=== PATIENT | female | born 1970 | race Caucasian/White ===

== ENCOUNTER → 2017-02-16 | Outpatient (CLI) | payer OTHER ==
[2017-02-16 18:29] LABS: COMPLEMENT C4 18.6 MG/DL (10-40); IMMUNOGLOBULIN M 71.7 MG/DL (40-230)
[2017-02-21 00:06] LABS: ALPHA 1 ANTITRYPSIN 104 mg/dL (90-200); D001-IgE D pteronyssinus 7.67 kU/L (Class IV); E001-IgE Cat Epith/Dander 0.34 kU/L (Class I); E005-IgE Dog Dander 0.67 kU/L (Class II); F004-IgE Wheat < 0.10 kU/L (Class 0); F013-IgE Peanut < 0.10 kU/L (Class 0); F014-IgE Soybean < 0.10 kU/L (Class 0); F026-IgE Pork < 0.10 kU/L (Class 0); F027-IgE Beef < 0.10 kU/L (Class 0); F095-IGE PEACH/NECTARINE 0.13 kU/L (Class 0/I); F245-IgE Egg, Whole 0.45 kU/L (Class I); FX02-IgE Food Mix (Sea Foods) Positive (.); G002-IgE Bermuda Grass 0.17 kU/L (Class 0/I); G008-IgE Kentucky Bluegrass 1.31 kU/L (Class II); M001-IgE Penicillium chrysogen < 0.10 kU/L (Class 0); M002 IgE Cladosporium herbaru < 0.10 kU/L (Class 0); M003 IgE Aspergillus fumigatu < 0.10 kU/L (Class 0); M006-IgE Alternaria alternata < 0.10 kU/L (Class 0); T001-IgE Maple/Box Elder < 0.10 kU/L (Class 0); T003-IgE Common Silver Birch 2.54 kU/L (Class III); T007-IgE Oak, White 0.13 kU/L (Class 0/I); T008-IgE Elm, American < 0.10 kU/L (Class 0); T015-IgE Ash, White 0.17 kU/L (Class 0/I); T041-IgE Hickory, White < 0.10 kU/L (Class 0); W001-IgE Ragweed, Short 0.64 kU/L (Class II); W009-IgE Plantain, English < 0.10 kU/L (Class 0); W014-IgE Pigweed, Rough < 0.10 kU/L (Class 0); W018-IgE Sheep Sorrel < 0.10 kU/L (Class 0)
== END ==
LOC: M LAB 16:50
PROVIDERS: ATTEND Allergy & Immunology
DX: J30.89 Other allergic rhinitis (principal); K52.29 Other allergic and dietetic gastroenteritis and colitis

== ENCOUNTER 2018-02-21 07:45 | Emergency (ER) | payer OTHER ==
[2018-02-21] MEDS: NS 1,000 ML IV (08:15)
[2018-02-21] MEDS: ONDANSETRON 4MG/2ML VIAL (J2405) IV (08:32)
[2018-02-21] MEDS: KETOROLAC 30 MG/ML VIAL (J1885) IV (08:32)
[2018-02-21] MEDS: diphenhydrAMINE INJ 50MG/ML VIAL (J1200) IV (08:32)
== END 2018-02-21 09:51 | disposition home or self-care (01) ==
LOC: M ED 07:45
DX: G43.909 Migraine, unspecified, not intractable, without status migrainosus (principal); J45.909 Unspecified asthma, uncomplicated; Z79.899 Other long term (current) drug therapy
CPT/HCPCS: J1200

== ENCOUNTER 2018-10-24 07:45 | Emergency (ER) | payer OTHER ==
[~2018-10-24] VITALS: Ht 160 cm; Wt 89.0 kg
[~2018-10-24 07:45] MED LIST: FLUT44IN INH; LEXA1TAB PO; MAXA10TA14 PO; SING10TA32 PO
[2018-10-24] MEDS ORDERED: ONDANSETRON 4MG/2ML VIAL (J2405) IV ONE (08:15)
[2018-10-24] MEDS ORDERED: NS 1,000 ML IV ONE (08:15)
[2018-10-24] MEDS ORDERED: KETOROLAC 30 MG/ML VIAL (J1885) IV ONE (08:15)
[2018-10-24] MEDS ORDERED: ACETAMINOPHEN 325 MG TAB PO ONE (08:15)
[2018-10-24] MEDS ORDERED: ONDA4TAB6 PO (08:56)
[2018-10-24 09:06] VITALS: BP 155/72
== END 2018-10-24 09:07 | disposition home or self-care (01) ==
LOC: M ED 07:45
DX: G43.909 Migraine, unspecified, not intractable, without status migrainosus (principal); Z79.899 Other long term (current) drug therapy
CPT/HCPCS: 96374; 96375; 99284; J1885; J2405

== ENCOUNTER 2018-12-09 13:09 | Emergency (ER) | payer OTHER ==
[~2018-12-09] VITALS: Ht 160 cm; Wt 81.8 kg
[~2018-12-09 13:09] MED LIST changes: +ONDA4TAB6 PO
[2018-12-09] MEDS ORDERED: RIZA10TA2 PO (13:18)
[2018-12-09] MEDS ORDERED: EXCETAB33 PO (13:18)
[2018-12-09] MEDS ORDERED: IBUP1TAB6 PO (13:18)
[2018-12-09] MEDS ORDERED: NS 1,000 ML IV ONE (15:30)
[2018-12-09] MEDS ORDERED: KETOROLAC 30 MG/ML VIAL (J1885) IV ONE (15:45)
[2018-12-09] MEDS ORDERED: PROCHLORPERAZINE 10 MG/2 ML VIAL (J0780) IV ONE (15:45)
[2018-12-09 16:24] LABS: HEMATOCRIT 40.7 % (36.0-47.0); HEMOGLOBIN 13.8 g/dl (12.0-15.5); MEAN CORPUSCULAR HEMOGLOBIN 32.6 pg (27.0-33.0); MEAN CORPUSCULAR HGB CONC 33.9 g/dl (32.0-36.5); MEAN CORPUSCULAR VOLUME 96.2 fl (80.0-96.0); PLATELET COUNT, AUTOMATED 223 10^3/uL (150-450); RED BLOOD COUNT 4.23 10^6/uL (4.00-5.40); WHITE BLOOD COUNT 9.4 10^3/uL (4.0-10.0)
[2018-12-09] MEDS ORDERED: KETO10TAB PO (18:13)
[2018-12-09 18:28] VITALS: BP 154/75
[2018-12-09 18:51] LABS: BLOOD UREA NITROGEN 9 MG/DL (7-18); CALCIUM LEVEL 8.7 MG/DL (8.5-10.1); CARBON DIOXIDE LEVEL 25 MEQ/L (21-32); CHLORIDE LEVEL 110 MEQ/L (98-107); GLOMERULAR FILTRATION RATE > 60.0 (>58); GLUCOSE, FASTING 111 MG/DL (70-100); POTASSIUM SERUM 3.7 MEQ/L (3.5-5.1); SODIUM LEVEL 141 MEQ/L (136-145)
== END 2018-12-09 18:30 | disposition home or self-care (01) ==
LOC: M ED 13:09
DX: G43.909 Migraine, unspecified, not intractable, without status migrainosus (principal); J45.909 Unspecified asthma, uncomplicated
CPT/HCPCS: 36415; 80048; 85027; 96361; 96374; 96375; 99284; J0780; J1885

== ENCOUNTER → 2021-10-10 | Outpatient (CLI) | payer OTHER ==
[~2021-10-10] MED LIST changes: +EXCETAB32 PO; +IBUP1TAB6 PO; +KETO10TAB PO; +RIZA10TA2 PO
== END ==
LOC: M WHC 13:35
PROVIDERS: ATTEND Obstetrics & Gynecology
DX: Z12.31 Encounter for screening mammogram for malignant neoplasm of breast (principal)

== ENCOUNTER → 2023-07-24 | Outpatient (CLI) | payer OTHER ==
[~2023-07-24] MED LIST changes: -MAXA10TA14 PO; +MONT-5 PO; +RIZA10TA64 PO; -SING10TA32 PO
== END ==
LOC: M RAD 16:17
PROVIDERS: ATTEND Nurse Practitioner Adult Health
DX: E03.9 Hypothyroidism, unspecified (principal)

== ENCOUNTER → 2023-07-30 | Outpatient (CLI) | payer OTHER | LOC: M WHC 15:49 | PROVIDERS: ATTEND Nurse Practitioner Family | DX: Z12.31 Encounter for screening mammogram for malignant neoplasm of breast (principal) ==